=== PATIENT | female | born 1950 | race Caucasian/White ===

== ENCOUNTER 2017-04-27 09:05 | Day surgery (SDC) | payer MEDICARE, OTHER ==
[~2017-04-27] VITALS: Ht 157.6 cm; Wt 131.8 kg
[~2017-04-27 09:05] MED LIST: ACETAMINOPHEN W1 TA6 PO; ALDACTONE 25MG25 M1 PO; ALDACTONE 25MG25 MG PO; ALDACTONE50 MG PO; ALPHA-LIPOIC ACID PO; AMBIEN 10MG10 MG PO; AMBIEN 5MG TABLE5 MG PO; ASPIR-LOW81 MG PO; ASPIR-LOX325 MG PO; ASPIRIN 32325 MG/TA1 PO; ASPIRIN 32325 MG/TAB PO; ASPIRIN 81M81 MG/TA2 PO; ATIVAN; ATIVAN 0.50.5 MG/TAB PO; ATIVAN 1MG T1 MG/TAB PO; AZO-CRANBERRY450 MG PO; BENADRYL25 M2 PO; BIOFLAX1000 MG PO; BUMEX; BUMEX1 MG PO; CALCARB 600600 MG PO; CALCIUM CALTRATE PO; CARDI-OMEGA1000 MG PO; CEFACLOR500 MG PO; CEPHALEXIN500 M1 PO; CLEOCIN HCL300 MG PO; CLOTRIMAZOLE VG; COENZYME Q-10100 M1 PO; COQ(10)1010 MG PO; COQ10250 MG PO; CRANBERRY500 M3 PO; CREON 120000 U-1 ECC PO; CREON 60000 U-11 ECC PO; CREON1 CAP PO; CUTIVATE30 GM TOP; DIFLUCAN 100MG100 MG PO; DIFLUCAN150 MG PO; DIGOXIN0.125 MG PO; DIOVAN320 MG PO; DULERA1 ARO IH; DUO-KAPS1 CAP PO; FISH OIL 1000MG1 CAP PO; FISH OIL CONCEN1 SGL PO; FLONASE NASAL S16 GM NS; FLUOCINONIDE0.05% TP; GLUCOPHAGE500 MG/TAB PO; GLUMETZA500 MG PO; HCTZ 25MG TAB25 MG PO; HCTZ 25MG25 MG PO; INSHUMULINR SC; K-DUR 2020 MEQ PO; K-DUR20 MEQ PO; LANOXIN 0.120.125 MG PO; LASIX 40MG TABL40 MG PO; LASIX 80MG TABL80 MG PO; LASIX40 MG PO; LIPITOR 80MG80 MG PO; LISINOPRIL10 MG PO; LIVALO PO; LOPID600 MG PO; LOPRESSOR; LOPRESSOR 225 MG/TAB PO; LOPRESSOR 550 MG/TAB PO; LOTRIMIN1% TP; LUNESTA3 MG PO; LUTEIN PO; LUTEIN20 M1 PO; LUTEIN20 MG PO; MAALOX EXTRA S150 ML PO; MAGNESIUM200 MG PO; MAGNESIUM250 M1 PO; MASON NATURAL L20 MG PO; METFORMIN HCL1000 MG PO; METFORMIN500 MG PO; MIRALAX PA17 GM/Dose PO; MUCINEX 60600 MG/TA1 PO; MUCINEX 60600 MG/TAB PO; MUCINEX DM 30 M1 TER PO; MULTAQ400 MG PO; NASAL MOISTURIZ45 ML; NEXIUM 40MG40 MG PO; NEXIUM PO; NORCO 325 MG-51 TAB PO; NOVLOG SC; NOVOLIN 70/30 IN3 ML SC; NYAMYC100000 U/G TP; OMEGA 31000 MG PO; OS-CAL 500 + D1 TAB PO; PATANOL OPHTHALM5 ML OU; PENLAC TP; POTASSIUM CHLO10 ME2 PO; PRADAXA 150MG150 MG PO; PRIL40 PO; PRILOSEC 20MG20 MG PO; PROAIR HFA0.09 MG/AC IH; PROTONIX 40MG T40 MG PO; RISPERDAL 1M1 MG/TAB PO; SEE LIST; SEPTRA DS 8001 TAB PO; SINGULAIR 110 MG/TAB PO; SINGULAIR10 MG PO; SPECTAZOLE TOP; SYNTHROID0.112 MG/T PO; TEKTURNA150 MG; TEKTURNA300 MG PO; TOPROL XL 25MG25 MG PO; TOPROL XL 50MG50 MG PO; TOPROL XL25 MG PO; VENTOLIN0.09 MG IH; VITAMIN B COMPL PO; VITAMIN B PO; VYTORIN 10 MG-41 TAB PO; VYTORIN PO; ZAROXOLYN 2.52.5 MG PO; ZOCOR80 MG PO; ZYRTEC 10MG; ZYRTEC 10MG10 MG PO; ZYRTEC10 MG PO; [UNRECOGNIZED DRUG - OTHER]; [UNRECOGNIZED DRUG - OTHER]; [UNRECOGNIZED DRUG - OTHER] PO; [UNRECOGNIZED DRUG - OTHER] PO; [UNRECOGNIZED DRUG - SUPPLY]; glyburide PO; potassium
[2017-04-27 10:18] LABS: HEMATOCRIT 37.1 % (37.0-47.0); HEMOGLOBIN 12.2 g/dl (12.5-16.0); MEAN CELL VOLUME 92 fl (80.0-100.0); MEAN CORPUSCULAR HEMOGLOBIN 30 pg (27.0-31.0); MEAN CORPUSCULAR HGB CONC 33 g/dl (33.0-37.0); MEAN PLATELET VOLUME 10.7 fl (7.4-10.4); PLATELET COUNT 227 K/mm3 (130-400); RED BLOOD COUNT 4.04 M/mm3 (4.10-5.30); WHITE BLOOD COUNT 8.3 K/mm3 (4.8-10.8)
[2017-04-27 10:30] LABS: CALCIUM 9.4 mg/dL (8.4-10.2); CREATININE, serum 1.4 mg/dL (0.52-1.25); POTASSIUM 3.8 mmol/L (3.4-5.0)
[2017-04-27] MEDS ORDERED: ASPIRIN 32325 MG/TAB PO (10:47)
[2017-04-27] MEDS ORDERED: MUCINEX 60600 MG/TA1 PO (10:51)
[2017-04-27 10:55] LABS: PROTHROMBIN TIME 10.8 SECONDS (9.7-12.8)
[2017-04-27] MEDS ORDERED: EPIPEN 2-PAK1 MG/ML IM (11:05)
[2017-04-27 11:33] VITALS: BP 142/73; PULSE 69
[2017-04-27 12:43] VITALS: BP 129/64; PULSE 71
[2017-04-27 13:00] VITALS: BP 102/95; PULSE 70
[2017-04-27 13:15] VITALS: BP 123/57; PULSE 70
[2017-04-27 13:30] VITALS: BP 117/66; PULSE 71
[2017-04-27 13:45] VITALS: BP 118/49; PULSE 70
== END 2017-04-27 14:42 | disposition home or self-care (01) ==
LOC: COL.CAR 09:05
PROVIDERS: Internal Medicine Cardiovascular Disease
DX: I42.9 Cardiomyopathy, unspecified (principal); I10 Essential (primary) hypertension; I48.91 Unspecified atrial fibrillation; E11.9 Type 2 diabetes mellitus without complications; E78.5 Hyperlipidemia, unspecified; E03.9 Hypothyroidism, unspecified; E66.9 Obesity, unspecified; M19.90 Unspecified osteoarthritis, unspecified site; G47.33 Obstructive sleep apnea (adult) (pediatric); Z86.718 Personal history of other venous thrombosis and embolism
CPT/HCPCS: C1721; J2250; J3010; J3370; J7030; J7050

== ENCOUNTER 2018-01-17 20:00 | Emergency (ER) | payer MEDICARE, OTHER ==
[~2018-01-17] VITALS: Ht 157.5 cm; Wt 138.6 kg
[~2018-01-17 20:00] MED LIST changes: +EPIPEN 2-PAK1 MG/ML IM
[2018-01-17 20:06] VITALS: BP 133/70; TEMP 97.7
[2018-01-17] MEDS ORDERED: LOPROX CR 15GM TOP (21:22)
[2018-01-17] MEDS ORDERED: LOTRIMIN1% TP (21:23)
[2018-01-17] MEDS ORDERED: NEOSPORIN1 OIN OP (21:23)
[2018-01-17] MEDS ORDERED: ECONAZOLE NITRATE11 TOP (21:24)
[2018-01-17] MEDS ORDERED: ASPI325T6 PO (21:24)
[2018-01-17] MEDS ORDERED: EPA FISH OIL1 SGL PO (21:25)
[2018-01-17] MEDS ORDERED: CUTIVATE30 GM TOP (21:26)
[2018-01-17] MEDS ORDERED: MUCINEX 60600 MG/TA1 PO (21:27)
[2018-01-17] MEDS ORDERED: MYRBETR50MG PO (21:28)
[2018-01-17] MEDS ORDERED: PROBIOTIC ACID1 EAC3 PO (21:31)
[2018-01-17] MEDS ORDERED: PANCREAZE 437501 ECC PO (21:31)
[2018-01-17] MEDS ORDERED: ZINC OXIDE 28GM TP (21:33)
[2018-01-17 22:00] VITALS: PULSE 69
== END 2018-01-17 22:00 | disposition home or self-care (01) ==
LOC: COL.ER 20:00
DX: S00.93XA Contusion of unspecified part of head, initial encounter (principal); S80.02XA Contusion of left knee, initial encounter; S60.221A Contusion of right hand, initial encounter; I10 Essential (primary) hypertension; E11.9 Type 2 diabetes mellitus without complications; Z79.4 Long term (current) use of insulin; E78.00 Pure hypercholesterolemia, unspecified; W19.XXXA Unspecified fall, initial encounter; Y92.009 Unspecified place in unspecified non-institutional (private) residence as the place of occurrence of the external cause

== ENCOUNTER 2018-03-08 05:17 | Emergency (ER) | payer MEDICARE, OTHER ==
[~2018-03-08] VITALS: Ht 157.5 cm; Wt 140.9 kg
[~2018-03-08 05:17] MED LIST changes: +ASPI325T6 PO; +ECONAZOLE NITRATE11 TOP; +EPA FISH OIL1 SGL PO; +LOPROX CR 15GM TOP; +MYRBETR50MG PO; +NEOSPORIN1 OIN OP; +PANCREAZE 437501 ECC PO; +PROBIOTIC ACID1 EAC3 PO; +ZINC OXIDE 28GM TP
[2018-03-08 05:20] VITALS: BP 141/71; TEMP 97.7
[2018-03-08 05:45] LABS: COLLECTION METHOD CLEAN CATCH
[2018-03-08 05:52] LABS: MUCOUS Present /lpf; PH 6 (5-8); SQUAMOUS EPITHELIAL 0-2 /hpf; URINE APPEARANCE Clear; URINE BACTERIA Rare /hpf; URINE BILIRUBIN Negative (NEGATIVE); URINE BLOOD Negative (NEGATIVE); URINE COLOR Yellow; URINE GLUCOSE Negative (NEGATIVE); URINE KETONE Negative (NEGATIVE); URINE LEUKOCYTE ESTERASE Negative (NEGATIVE); URINE NITRATE Negative (NEGATIVE); URINE PROTEIN(semi-quant) Negative (NEGATIVE); URINE RBC 0-2 /hpf; URINE UROBILINOGEN Negative (NEGATIVE)
[2018-03-08 05:54] LABS: BASO # 0.1 (0.0-0.2); BASO % 0.7 % (0.0-2.0); EOS # 0.2 (0.0-0.7); EOS % 2.2 % (0-4.0); GRAN # 5.6 (1.4-6.5); GRAN % 65.6 % (42.2-75.2); HEMATOCRIT 37.4 % (37.0-47.0); HEMOGLOBIN 12.4 g/dl (12.5-16.0); LYMPH # 1.9 (1.2-3.4); LYMPH % 21.6 % (20.0-51.0); MEAN CELL VOLUME 93 fl (80.0-100.0); MEAN CORPUSCULAR HEMOGLOBIN 31 pg (27.0-31.0); MEAN CORPUSCULAR HGB CONC 33 g/dl (33.0-37.0); MEAN PLATELET VOLUME 9.9 fl (7.4-10.4); MONO # 0.8 (0.1-0.6); MONO % 9.7 % (1.7-9.3); PLATELET COUNT 250 K/mm3 (130-400); RED BLOOD COUNT 4.02 M/mm3 (4.10-5.30); REDCELL DISTRIBUTION WIDTH-CV 14.3 % (11.5-14.5)
[2018-03-08 06:07] LABS: ALBUMIN 4.1 gm/dL (3.5-5.0); BILIRUBIN,TOTAL 0.5 mg/dL (0.0-1.0); C-REACTIVE PROTEIN 0.8 mg/dL (0.0-0.9); CALCIUM 8.9 mg/dL (8.4-10.2); CREATININE, serum 1.48 mg/dL (0.52-1.25); POTASSIUM 4.4 mmol/L (3.4-5.0); TOTAL PROTEIN 7.8 gm/dL (6.4-8.2)
[2018-03-08] MEDS ORDERED: OMNICEF 300MG300 MG PO (07:35)
[2018-03-08 07:48] VITALS: PULSE 79
== END 2018-03-08 07:48 | disposition home or self-care (01) ==
LOC: COL.ER 05:17
PROVIDERS: Emergency Medicine
DX: N39.0 Urinary tract infection, site not specified (principal); E11.9 Type 2 diabetes mellitus without complications; I48.91 Unspecified atrial fibrillation; I50.9 Heart failure, unspecified; Z79.4 Long term (current) use of insulin; Z87.442 Personal history of urinary calculi

== ENCOUNTER 2018-04-10 12:36 | Day surgery (SDC) | payer MEDICARE, OTHER ==
[~2018-04-10] VITALS: Ht 157.5 cm; Wt 135.8 kg
[~2018-04-10 12:36] MED LIST changes: +OMNICEF 300MG300 MG PO
[2018-04-10 13:11] VITALS: BP 135/84; PULSE 71; TEMP 97.5
[2018-04-10] MEDS ORDERED: LIPITOR 80MG80 MG PO (13:17)
[2018-04-10] MEDS ORDERED: PRIL40 PO (13:17)
[2018-04-10] MEDS ORDERED: SPECTAZOLE 1% C15 GM TP ×2 (13:18→13:43)
[2018-04-10] MEDS ORDERED: XANAX 0.5MG0.5 MG PO (13:18)
[2018-04-10] MEDS ORDERED: SINGULAIR 110 MG/TAB PO (13:18)
[2018-04-10] MEDS ORDERED: SYNTHROID0.112 MG/T PO (13:19)
[2018-04-10] MEDS ORDERED: OS-CAL 500 + D1 TAB PO (13:19)
[2018-04-10] MEDS ORDERED: EPA FISH OIL1 SGL PO (13:20)
[2018-04-10] MEDS ORDERED: MUCINEX 60600 MG/TA1 PO (13:20)
[2018-04-10] MEDS ORDERED: GLUCOPHAGE500 MG/TAB PO (13:20)
[2018-04-10] MEDS ORDERED: MULTAQ400 MG PO (13:29)
[2018-04-10] MEDS ORDERED: HCTZ 25MG TAB25 MG PO (13:31)
[2018-04-10] MEDS ORDERED: PATANOL OPHTHALM5 ML OU (13:31)
[2018-04-10] MEDS ORDERED: LUNESTA3 MG PO (13:31)
[2018-04-10] MEDS ORDERED: MYRBETR50MG PO (13:34)
[2018-04-10] MEDS ORDERED: PANCREAZE 437501 ECC PO (13:34)
[2018-04-10] MEDS ORDERED: TEKTURNA300 MG PO (13:34)
[2018-04-10] MEDS ORDERED: LOPRESSOR 550 MG/TAB PO (13:35)
[2018-04-10] MEDS ORDERED: NOVOLOG PUMP SQ (13:37)
[2018-04-10] MEDS ORDERED: ZAROXOLYN5 MG PO (13:37)
[2018-04-10] MEDS ORDERED: ALDACTONE 25MG25 M1 PO (13:38)
[2018-04-10] MEDS ORDERED: LOPRESSOR 225 MG/TAB PO (13:39)
[2018-04-10] MEDS ORDERED: PROAIR HFA0.09 MG/AC IH (13:40)
[2018-04-10] MEDS ORDERED: LASIX 40MG TABL40 MG PO (13:41)
[2018-04-10] MEDS ORDERED: K-DUR20 MEQ PO (13:41)
[2018-04-10] MEDS ORDERED: ZYRTEC 10MG10 MG PO (13:41)
[2018-04-10] MEDS ORDERED: NEOSPORIN1 OIN OP (13:42)
[2018-04-10] MEDS ORDERED: ASPIRIN 32325 MG/TAB PO (13:42)
[2018-04-10] MEDS ORDERED: LOPROX CR 15GM TOP (13:42)
[2018-04-10] MEDS ORDERED: ZINC OXIDE 28GM TP (13:43)
[2018-04-10] MEDS ORDERED: EPIPEN 2-PAK1 MG/ML IM (13:43)
[2018-04-10] MEDS ORDERED: CUTIVATE15GMOINT TOP (13:44)
[2018-04-10] MEDS ORDERED: CRANBERRY500 M3 PO (13:44)
[2018-04-10] MEDS ORDERED: LOTRIMIN1% TP (13:44)
[2018-04-10] MEDS ORDERED: DULERA1 ARO IH (13:45)
[2018-04-10] MEDS ORDERED: BENADRYL25 M2 PO (13:45)
[2018-04-10] MEDS ORDERED: LUTEIN20 M1 PO (13:52)
[2018-04-10 15:00] VITALS: BP 111/76; PULSE 69; TEMP 97.7
[2018-04-10 15:15] VITALS: BP 132/63; PULSE 70
[2018-04-10 15:30] VITALS: BP 125/60; PULSE 70
[2018-04-10 15:45] VITALS: BP 117/63; PULSE 70
== END 2018-04-10 16:05 | disposition home or self-care (01) ==
LOC: SDCO 12:36
DX: D12.3 Benign neoplasm of transverse colon (principal); D12.8 Benign neoplasm of rectum; K63.5 Polyp of colon; K64.0 First degree hemorrhoids; K57.30 Diverticulosis of large intestine without perforation or abscess without bleeding; E11.9 Type 2 diabetes mellitus without complications; I10 Essential (primary) hypertension; J45.909 Unspecified asthma, uncomplicated; E03.9 Hypothyroidism, unspecified; K21.9 Gastro-esophageal reflux disease without esophagitis; I25.10 Atherosclerotic heart disease of native coronary artery without angina pectoris; I11.0 Hypertensive heart disease with heart failure; I50.9 Heart failure, unspecified; R19.7 Diarrhea, unspecified; I42.8 Other cardiomyopathies; G47.33 Obstructive sleep apnea (adult) (pediatric); Z79.82 Long term (current) use of aspirin; Z95.0 Presence of cardiac pacemaker; Z96.41 Presence of insulin pump (external) (internal); Z88.0 Allergy status to penicillin; Z88.2 Allergy status to sulfonamides; Z88.1 Allergy status to other antibiotic agents; Z88.8 Allergy status to other drugs, medicaments and biological substances; Z86.010 Personal history of colon polyps; Z85.828 Personal history of other malignant neoplasm of skin
CPT/HCPCS: J2704; J7030

== ENCOUNTER 2018-09-17 12:36 | Emergency (ER) | payer MEDICARE, OTHER ==
[~2018-09-17] VITALS: Ht 157.5 cm; Wt 139.9 kg
[~2018-09-17 12:36] MED LIST changes: +CUTIVATE15GMOINT TOP; +NOVOLOG PUMP SQ; +SPECTAZOLE 1% C15 GM TP; +XANAX 0.5MG0.5 MG PO; +ZAROXOLYN5 MG PO
[2018-09-17 12:41] VITALS: BP 134/61; TEMP 98.8
[2018-09-17] MEDS ORDERED: FLEXERIL 1010 MG/TAB PO (14:50)
[2018-09-17] MEDS ORDERED: CREON 60000 U-11 ECC PO (15:06)
[2018-09-17] MEDS ORDERED: ALDACTONE 25MG25 M1 PO (15:08)
[2018-09-17 17:30] VITALS: PULSE 76
== END 2018-09-17 17:30 | disposition home or self-care (01) ==
LOC: COL.ER 12:36
DX: S39.012A Strain of muscle, fascia and tendon of lower back, initial encounter (principal); I10 Essential (primary) hypertension; E11.9 Type 2 diabetes mellitus without complications; I50.9 Heart failure, unspecified; Z79.84 Long term (current) use of oral hypoglycemic drugs; W01.0XXA Fall on same level from slipping, tripping and stumbling without subsequent striking against object, initial encounter; Y92.009 Unspecified place in unspecified non-institutional (private) residence as the place of occurrence of the external cause

== ENCOUNTER → 2018-11-21 | Outpatient (CLI) | payer MEDICARE, OTHER ==
[~2018-11-21] MED LIST changes: +FLEXERIL 1010 MG/TAB PO
== END ==
LOC: COL.RAD 10:34
DX: M25.78 Osteophyte, vertebrae (principal); R10.10 Upper abdominal pain, unspecified; Z95.1 Presence of aortocoronary bypass graft

== ENCOUNTER → 2019-02-11 | Outpatient (CLI) | payer MEDICARE, OTHER | LOC: COL.RAD 14:05 | DX: M75.121 Complete rotator cuff tear or rupture of right shoulder, not specified as traumatic (principal); M19.011 Primary osteoarthritis, right shoulder; M75.81 Other shoulder lesions, right shoulder | CPT/HCPCS: Q9967 ==

== ENCOUNTER → 2019-02-15 | Outpatient (CLI) | payer MEDICARE, OTHER | LOC: COL.RAD 10:09 | DX: M75.101 Unspecified rotator cuff tear or rupture of right shoulder, not specified as traumatic (principal) | CPT/HCPCS: J3301; Q9967 ==

== ENCOUNTER 2019-03-04 14:48 | Outpatient (RCR) | payer MEDICARE, OTHER | END 2019-03-14 13:00 | disposition home or self-care (01) | LOC: WSC 14:48 | DX: M17.0 Bilateral primary osteoarthritis of knee (principal); M19.011 Primary osteoarthritis, right shoulder; M19.012 Primary osteoarthritis, left shoulder ==

== ENCOUNTER 2019-03-31 17:22 | Emergency (ER) | payer MEDICARE, OTHER ==
[~2019-03-31] VITALS: Ht 157.5 cm; Wt 130.9 kg
[2019-03-31 17:26] VITALS: BP 124/59; TEMP 98.5
[2019-03-31 18:48] VITALS: PULSE 71
== END 2019-03-31 18:44 | disposition home or self-care (01) ==
LOC: COL.ER 17:22
DX: S00.83XA Contusion of other part of head, initial encounter (principal); S40.011A Contusion of right shoulder, initial encounter; S80.01XA Contusion of right knee, initial encounter; W18.39XA Other fall on same level, initial encounter

== ENCOUNTER 2019-06-06 09:08 | Emergency (ER) | payer MEDICARE, OTHER ==
[~2019-06-06] VITALS: Ht 157.5 cm; Wt 134.1 kg
[2019-06-06 09:22] VITALS: TEMP 97.7
[2019-06-06 10:26] LABS: BASO # 0.1 (0.0-0.2); BASO % 0.9 % (0.0-2.0); EOS # 0.4 (0.0-0.7); EOS % 5.5 % (0-4.0); GRAN # 4.1 (1.4-6.5); GRAN % 60.5 % (42.2-75.2); LYMPH # 1.5 (1.2-3.4); LYMPH % 21.4 % (20.0-51.0); MEAN CELL VOLUME 92 fl (80.0-100.0); MEAN CORPUSCULAR HEMOGLOBIN 30 pg (27.0-31.0); MEAN CORPUSCULAR HGB CONC 32 g/dl (33.0-37.0); MEAN PLATELET VOLUME 10.2 fl (7.4-10.4); MONO # 0.8 (0.1-0.6); MONO % 11.1 % (1.7-9.3); PLATELET COUNT 270 K/mm3 (130-400); RED BLOOD COUNT 3.72 M/mm3 (4.10-5.30); REDCELL DISTRIBUTION WIDTH-CV 14.9 % (11.5-14.5)
[2019-06-06 10:28] LABS: HEMATOCRIT 34.3 % (37.0-47.0)
[2019-06-06 10:31] LABS: PROTHROMBIN TIME 11.1 SECONDS (9.7-12.8)
[2019-06-06 10:38] LABS: ALBUMIN 4.2 gm/dL (3.5-5.0); BILIRUBIN,TOTAL 0.4 mg/dL (0.0-1.0); CALCIUM 9.1 mg/dL (8.4-10.2); CREATININE, serum 1.72 (0.52-1.25); TOTAL PROTEIN 7.4 gm/dL (6.4-8.2)
[2019-06-06 10:51] LABS: TROPONIN-I 0.025 ng/mL (0.000-0.035)
[2019-06-06 12:30] VITALS: BP 127/57; PULSE 74
== END 2019-06-06 12:30 | disposition home or self-care (01) ==
LOC: COL.ER 09:08
PROVIDERS: Emergency Medicine
DX: I50.9 Heart failure, unspecified (principal); E11.9 Type 2 diabetes mellitus without complications; I10 Essential (primary) hypertension; Z79.84 Long term (current) use of oral hypoglycemic drugs
CPT/HCPCS: J1940

== ENCOUNTER 2019-06-26 05:49 | Emergency (ER) | payer MEDICARE, OTHER ==
[~2019-06-26] VITALS: Ht 157.5 cm; Wt 130.5 kg
[2019-06-26 06:00] VITALS: BP 116/58; TEMP 97.5
[2019-06-26 06:46] LABS: COLLECTION METHOD CLEAN CATCH
[2019-06-26 07:10] LABS: MUCOUS Present /lpf; PH 6 (5-8); URINE APPEARANCE Cloudy; URINE BACTERIA None Seen /hpf; URINE BILIRUBIN Negative (NEGATIVE); URINE BLOOD 1+ (NEGATIVE); URINE COLOR Yellow; URINE GLUCOSE Negative (NEGATIVE); URINE KETONE Negative (NEGATIVE); URINE LEUKOCYTE ESTERASE 3+ (NEGATIVE); URINE NITRATE Negative (NEGATIVE); URINE PROTEIN(semi-quant) 1+ (NEGATIVE); URINE RBC 20-50 /hpf; URINE UROBILINOGEN Negative (NEGATIVE)
[2019-06-26] MEDS ORDERED: MACROBID 1100 MG/CAP PO (07:24)
[2019-06-26] MEDS ORDERED: TYLENOL W/COD1 UDTAB PO (08:46)
[2019-06-26] MEDS ORDERED: DIAMOX125 MG (08:48)
[2019-06-26] MEDS ORDERED: BENADRYL25 M2 PO (08:50)
[2019-06-26] MEDS ORDERED: MULTAQ400 MG PO (08:51)
[2019-06-26] MEDS ORDERED: VAGIFEM10 MCG VG (08:52)
[2019-06-26] MEDS ORDERED: EPA FISH OIL1000 MG PO (08:53)
[2019-06-26] MEDS ORDERED: MUCINEX 60600 MG/TA1 PO (08:54)
[2019-06-26] MEDS ORDERED: NOVOLOG 100U100 U/M1 SQ (08:55)
[2019-06-26] MEDS ORDERED: NIZORAL CREAM15 GM TP (08:56)
[2019-06-26] MEDS ORDERED: MOBIC15 MG PO (08:57)
[2019-06-26 09:13] VITALS: PULSE 71
== END 2019-06-26 09:14 | disposition home or self-care (01) ==
LOC: COL.ER 05:49
PROVIDERS: Emergency Medicine
DX: N39.0 Urinary tract infection, site not specified (principal); K21.9 Gastro-esophageal reflux disease without esophagitis; E03.9 Hypothyroidism, unspecified; J45.909 Unspecified asthma, uncomplicated; I11.0 Hypertensive heart disease with heart failure; I50.9 Heart failure, unspecified; E11.9 Type 2 diabetes mellitus without complications; Z79.82 Long term (current) use of aspirin; Z79.4 Long term (current) use of insulin
CPT/HCPCS: J0696

== ENCOUNTER 2019-10-18 20:11 | Inpatient (IN) | payer MEDICARE, OTHER ==
[~2019-10-18] VITALS: Ht 157.5 cm; Wt 121.7 kg
[~2019-10-18 20:11] MED LIST changes: +DIAMOX125 MG; +EPA FISH OIL1000 MG PO; +MACROBID 1100 MG/CAP PO; +MOBIC15 MG PO; +NIZORAL CREAM15 GM TP; +NOVOLOG 100U100 U/M1 SQ; +TYLENOL W/COD1 UDTAB PO; +VAGIFEM10 MCG VG
[2019-10-18 20:42] LABS: BASO % 0.3 % (0.0-2.0); GRAN # 9.9 (1.4-6.5); GRAN % 85.5 % (42.2-75.2); HEMOGLOBIN 10.9 g/dl (12.5-16.0); LYMPH # 0.5 (1.2-3.4); LYMPH % 4.4 % (20.0-51.0); MEAN CELL VOLUME 87 fl (80.0-100.0); MEAN CORPUSCULAR HEMOGLOBIN 29 pg (27.0-31.0); MEAN CORPUSCULAR HGB CONC 33 g/dl (33.0-37.0); MEAN PLATELET VOLUME 10.4 fl (7.4-10.4); MONO # 1.1 (0.1-0.6); MONO % 9.2 % (1.7-9.3); PLATELET COUNT 185 K/mm3 (130-400); RED BLOOD COUNT 3.74 M/mm3 (4.10-5.30); REDCELL DISTRIBUTION WIDTH-CV 14.6 % (11.5-14.5)
[2019-10-18 20:44] LABS: HEMATOCRIT 32.7 % (37.0-47.0)
[2019-10-18 20:53] LABS: ALBUMIN 3.6 gm/dL (3.5-5.0); BILIRUBIN,TOTAL 0.6 mg/dL (0.0-1.0); CALCIUM 8.5 mg/dL (8.4-10.2); CREATININE, serum 1.95 (0.52-1.25); TOTAL PROTEIN 7.2 gm/dL (6.4-8.2)
[2019-10-18 21:08] LABS: TROPONIN-I 2.5 ng/mL (0.000-0.035)
[2019-10-18 21:31] LABS: MUCOUS Present /lpf; PH 5 (5-8); URINE APPEARANCE Cloudy; URINE BACTERIA Many /hpf; URINE BILIRUBIN Negative (NEGATIVE); URINE BLOOD 2+ (NEGATIVE); URINE COLOR Yellow; URINE GLUCOSE 2+ (NEGATIVE); URINE KETONE Negative (NEGATIVE); URINE LEUKOCYTE ESTERASE 3+ (NEGATIVE); URINE NITRATE Negative (NEGATIVE); URINE PROTEIN(semi-quant) 1+ (NEGATIVE); URINE UROBILINOGEN Negative (NEGATIVE)
[2019-10-18 21:31] LABS: C-REACTIVE PROTEIN 33.6 mg/dL (0.0-0.9)
[2019-10-18 21:45] LABS: ARTERIAL BLD GAS O2 SATURATION 91.6 % (92-100); ARTERIAL BLD GAS TCO2 CT 32.8; ARTERIAL BLOOD GAS BASE EXCESS 7.7 (-2-2); ARTERIAL BLOOD GAS HCO3 31.6 meq/L (22-26); ARTERIAL BLOOD GAS PCO2 41.3 mmHg (35-45); ARTERIAL BLOOD GAS PO2 56.5 mmHg (80-100)
[2019-10-18] MEDS ORDERED: SYNTHROID 0.10.15 MG PO (22:38)
[2019-10-18] MEDS ORDERED: MIRALAX PA17 GM/Dose PO (22:39)
--- NOTE | 2019-10-18 23:00 | NUR ---
Pt calls for her HS meds, reminded her she had them at 10pm. Asking for another jello, as she is still on clear liquid diet.
[2019-10-19] VITALS (491 sets, daily range): BP systolic 97–141; BP diastolic 45–84; PULSE 77–98; TEMP 97.6–101; O2SAT 79–100
--- NOTE | 2019-10-19 00:51 | NUR ---
Received report from DENNIS Montelongo.
--- NOTE | 2019-10-19 01:07 | NUR ---
Patient arrives to ICU room 6 via ED stretcher. Patient able to pivot into bed with two person assist. Ilene notified of patient's arrival and is at the bedside. Patient incontinent of urine during transfer. She is short of breath upon arrival, but tolerates transfer well. BP is 94/49 upon arrival, other vitals within normal limits. Patient's bottom and pubic area are slightly reddened, but intact and blanchable. Some 1+ edema noted to the bilateral lower extremities, no other skin issues noted. Patient states she is in chronic pain due to arthritis, stating her baseline is a 10/10. Patient is alert and oriented x 4, however, is a poor health historian. When completing Admission B, patient answers "yes," to all health conditions when asked. She states she normally sleeps in a more upright position, so patient was eventually transferred to a recliner. She is currently resting quietly and watching televison. RT has been notified of order for CPAP. Will contact in AM and request he bring home CPAP as well as her mouthguard and glasses. Will continue to monitor.
[2019-10-19] MEDS ORDERED: TOPROL XL 25MG25 MG PO (03:09)
[2019-10-19 06:11] LABS: ARTERIAL BLD GAS O2 SATURATION 90.6 % (92-100); ARTERIAL BLD GAS TCO2 CT 26.4; ARTERIAL BLOOD GAS BASE EXCESS 2.4 (-2-2); ARTERIAL BLOOD GAS HCO3 25.4 meq/L (22-26); ARTERIAL BLOOD GAS pH 7.49 (7.35-7.45)
[2019-10-19 07:35] LABS: HEMOGLOBIN 11.3 g/dl (12.5-16.0); MEAN CELL VOLUME 89 fl (80.0-100.0); MEAN CORPUSCULAR HEMOGLOBIN 29 pg (27.0-31.0); MEAN CORPUSCULAR HGB CONC 33 g/dl (33.0-37.0); MEAN PLATELET VOLUME 10.8 fl (7.4-10.4); PLATELET COUNT 189 K/mm3 (130-400); RED BLOOD COUNT 3.86 M/mm3 (4.10-5.30); REDCELL DISTRIBUTION WIDTH-CV 14.8 % (11.5-14.5)
[2019-10-19 07:40] LABS: HEMATOCRIT 34.4 % (37.0-47.0)
[2019-10-19 07:42] LABS: ALBUMIN 3.7 gm/dL (3.5-5.0); BILIRUBIN,TOTAL 0.9 mg/dL (0.0-1.0); CALCIUM 8.6 mg/dL (8.4-10.2); CREATININE, serum 1.85 (0.52-1.25); POTASSIUM 3.8 mmol/L (3.4-5.0); TOTAL PROTEIN 7.3 gm/dL (6.4-8.2)
--- NOTE | 2019-10-19 19:22 | NUR ---
Report called to Medical. Patient will transfer to room 316.
--- NOTE | 2019-10-19 20:00 | NUR ---
Pt arrived per w/c from ICU, transferred from w/c to bed with 2 assist and moderate help. Reports using a walker at home. Assisted pt with her legs to bed. Has fang catheter to BSD with yellow urine. Has SL to right hand without redness or swelling. Respirations labored with activity, lungs are clear. Pt is forgetful, could not tell me the date, did know where she was.
--- NOTE | 2019-10-19 21:55 | NUR ---
Medicated with HS meds including Xanax for sleep. Pt has CPAP at bedside.
--- NOTE | 2019-10-20 | NUR ---
Pt again asking for her HS meds. Reminded again she had them at 10pm. Encouraged to sleep.
--- NOTE | 2019-10-20 03:34 | NUR ---
Assisted to bathroom with gait belt and walker with 2 supervising, pt ambulates with slow steady gait. Has mod soft BM. Back to bed. Denies needs at this time.
[2019-10-20 04:26] VITALS: BP 138/59; PULSE 92; TEMP 100.3
--- NOTE | 2019-10-20 06:30 | NUR ---
Resting in bed with CPAP on.
[2019-10-20 07:12] LABS: BASO % 0.2 % (0.0-2.0); EOS % 0.2 % (0-4.0); GRAN # 8.2 (1.4-6.5); GRAN % 76.8 % (42.2-75.2); HEMOGLOBIN 10.4 g/dl (12.5-16.0); LYMPH # 1.1 (1.2-3.4); MEAN CELL VOLUME 89 fl (80.0-100.0); MEAN CORPUSCULAR HEMOGLOBIN 29 pg (27.0-31.0); MEAN CORPUSCULAR HGB CONC 33 g/dl (33.0-37.0); MEAN PLATELET VOLUME 10.5 fl (7.4-10.4); MONO # 1.3 (0.1-0.6); MONO % 12.1 % (1.7-9.3); PLATELET COUNT 186 K/mm3 (130-400); RED BLOOD COUNT 3.55 M/mm3 (4.10-5.30); REDCELL DISTRIBUTION WIDTH-CV 14.8 % (11.5-14.5)
[2019-10-20 07:15] LABS: HEMATOCRIT 31.5 % (37.0-47.0)
[2019-10-20 07:21] LABS: ALBUMIN 3.3 gm/dL (3.5-5.0); BILIRUBIN,TOTAL 0.7 mg/dL (0.0-1.0); CALCIUM 8.2 mg/dL (8.4-10.2); CREATININE, serum 1.2 (0.52-1.25); POTASSIUM 3.7 mmol/L (3.4-5.0); TOTAL PROTEIN 6.7 gm/dL (6.4-8.2)
[2019-10-20 07:22] LABS: INR 1.1 (0.8-3.0); PROTHROMBIN TIME 13.3 SECONDS (9.7-12.8)
[2019-10-20 08:12] VITALS: BP 127/49; PULSE 101; TEMP 100.1
[2019-10-20 08:56] LABS: COLLECTION METHOD CATHETER
--- NOTE | 2019-10-20 11:03 | NUR ---
Patient alert, confused. Answers some questions appropriately, but continually refers back to previous question before answering correctly. Abdomen soft, non tender, non distended. Bowel sounds active x4 quads. +Flatus. Felder catheter in place and draining clear yellow urine. No c/o at this time.
[2019-10-20 11:37] VITALS: BP 121/55; PULSE 101; TEMP 99.5
[2019-10-20 15:59] VITALS: BP 127/54; PULSE 83; TEMP 97.5
[2019-10-20 19:35] VITALS: BP 151/56; PULSE 97; TEMP 98.7
[2019-10-21 00:05] VITALS: BP 150/72; PULSE 96; TEMP 99.2
--- NOTE | 2019-10-21 02:17 | NUR ---
PATIENT IS IN BED MESSING AROUND JUST NOT SLEEPING BUT DENYING ANY NEEDS
[2019-10-21 03:56] VITALS: BP 115/54; PULSE 90; TEMP 98.2
--- NOTE | 2019-10-21 04:22 | NUR ---
PATIENT IS RESTING IN BED
--- NOTE | 2019-10-21 04:57 | NUR ---
patient finally settled down and went to sleep with the cpap on. patient has denied any other needs throughout the night. before she went to sleep she was cross ways in the bed while trying to brush her teeth, aide and I put her in bed with x3 side rails up to keep her in place. patient blood sugar at 0000 was 349 and A [facility] was notified and Q4 dosing insulin was changed on her eMAR. per 0400 accu check patient was 273 and dosed accordingly. patient has been having good output with the fang in place. no other complaints at this time. will report off to day shift upon their arrival
[2019-10-21 07:12] LABS: HEMOGLOBIN 10.7 g/dl (12.5-16.0); MEAN CELL VOLUME 88 fl (80.0-100.0); MEAN CORPUSCULAR HEMOGLOBIN 29 pg (27.0-31.0); MEAN CORPUSCULAR HGB CONC 33 g/dl (33.0-37.0); MEAN PLATELET VOLUME 10.7 fl (7.4-10.4); PLATELET COUNT 212 K/mm3 (130-400); RED BLOOD COUNT 3.71 M/mm3 (4.10-5.30); REDCELL DISTRIBUTION WIDTH-CV 14.8 % (11.5-14.5)
[2019-10-21 07:18] LABS: HEMATOCRIT 32.7 % (37.0-47.0)
[2019-10-21 07:19] LABS: INR 1.1 (0.8-3.0); PROTHROMBIN TIME 12.3 SECONDS (9.7-12.8)
[2019-10-21 07:39] LABS: ALBUMIN 3.3 gm/dL (3.5-5.0); BILIRUBIN,TOTAL 0.6 mg/dL (0.0-1.0); CALCIUM 8.5 mg/dL (8.4-10.2); CREATININE, serum 1.13 (0.52-1.25); POTASSIUM 3.5 mmol/L (3.4-5.0)
[2019-10-21 08:10] VITALS: BP 121/63; PULSE 90; TEMP 97.9
--- NOTE | 2019-10-21 10:16 | NUR ---
DYAN met with the patient to complete initial intake. The patient lives in [place] with her , Prieto. The patient has a walker and a CPAP and is independent with ADLs. The patient's PCP is Dr. Hickey and receives medications from [place] [facility]. The patient does not have advanced directives. The patient plans to return home at discharge with Prieto providing transportation. There are no additional needs at this time.
--- NOTE | 2019-10-21 10:43 | NUR ---
PT/OT ordered.
[2019-10-21 11:05] LABS: BAND 5 % (0-10); LYMPHOCYTE 20 % (20.0-51.0); NEUTROPHILS 64 % (42.0-75.2)
[2019-10-21 11:15] LABS: PLATELET ESTIMATE NORMAL (NORMAL)
[2019-10-21 11:49] VITALS: BP 105/38; PULSE 90; TEMP 98.8
--- NOTE | 2019-10-21 11:51 | NUR ---
Assessment complete. Pt laying in bed fixated on moving around her gown. I had to put her gown and blankets back on 3 times. She is alert and states that she feels great and is ready to go home but she is not oriented to place or time. She thought it was 1950. She denies pain and discomfort at this time. I repositioned her up in the bed and set her up for breakfast but she continues to state she is going to eat it later. Fall precautions are in place. Call light is in reach.
--- NOTE | 2019-10-21 13:41 | NUR ---
Post acute rehab is being recommended for the patient. DYAN contacted the patient's , Prieto to discuss Medicare.[facility]'s list of post acute rehab facilities in [place]. Prieto was in agreeance with the patient needing rehab and the first choice is [facility] and second choice is [facility]. DYAN met with the patient and she was in agreeance. Referrals sent. Awaiting responses.
--- NOTE | 2019-10-21 13:50 | NUR ---
DYAN received a phone call from the patient's daughter, Ulisses Sweet ([phone]) she lives in [place]. She was in agreeance with post acute rehab for the patient. Will continue to monitor.
--- NOTE | 2019-10-21 15:38 | NUR ---
Patient continues to be confused throughout the day. She can hold a normal conversation without noticable deficits but it is very difficult to get her to perform tasks. She always agrees to do a certain task or movement but fidgets so much with everything she touches that it is impossible to get anything done. She wanted her robe off (which she insisted on having this morning) so I put her in clean yellow gown as requested. Immediately after putting it on she insisted on having it off in order to be able to move and did not want it back on. She is lying in bed naked with just the top sheet and is content. I have tried to get her to eat all day, she says she is going to time after time and then doesnt. And when I ask her why she states "I havent been able to get to it" or "I fell asleep". I will continue to monitor and to try to get her to eat.
[2019-10-21 16:25] VITALS: BP 151/75; PULSE 95; TEMP 98.4
--- NOTE | 2019-10-21 16:49 | NUR ---
Litzy from [facility] reports they are good to follow. They are requesting a COVID-19 swab and they want to make sure the patient will not require intermittent BiPAP usage. SW informed PA of the COVID-19 information. Will continue to monitor.
--- NOTE | 2019-10-21 18:05 | NUR ---
Pt has had a good day. Confusion continues. i will be calling her to see if he can bring her her insulin pump to her tonight here so that it can be set up for her tomorrow per Sara TAYLOR request. No pain or discomfort all day other than her chronic arthritis pain. I encouraged food all day but patient did not eat very much. No other needs. call light in reach .
--- NOTE | 2019-10-21 20:30 | NUR ---
Initial shift assessment done- alert/oriented x4- very fidgety-does not stop moving her blanket around the bed, taking on and off her gown- constantly , answers all the questions regarding time/year/place correct--does state that her diabetes is what is causing all her issues,,Tele on, Felder to DD with cloudy urine.
[2019-10-21 21:35] VITALS: BP 121/54; PULSE 104; TEMP 98.3
[2019-10-22 00:45] VITALS: BP 123/102; PULSE 100; TEMP 98.5
[2019-10-22 04:34] VITALS: BP 124/60; PULSE 92; TEMP 98.3
--- NOTE | 2019-10-22 06:30 | NUR ---
Did not sleep much last night- remains very fidgety- was given xanax and flexeril once during the night- did sleep for about an hour after those were given- blood sugars remain [id number] scale given
[2019-10-22 06:42] LABS: HEMOGLOBIN 11.3 g/dl (12.5-16.0); MEAN CELL VOLUME 88 fl (80.0-100.0); MEAN CORPUSCULAR HEMOGLOBIN 29 pg (27.0-31.0); MEAN CORPUSCULAR HGB CONC 33 g/dl (33.0-37.0); MEAN PLATELET VOLUME 10.7 fl (7.4-10.4); PLATELET COUNT 259 K/mm3 (130-400); RED BLOOD COUNT 3.95 M/mm3 (4.10-5.30); REDCELL DISTRIBUTION WIDTH-CV 14.7 % (11.5-14.5)
[2019-10-22 06:44] LABS: HEMATOCRIT 34.6 % (37.0-47.0)
[2019-10-22 06:52] LABS: PROTHROMBIN TIME 12.2 SECONDS (9.7-12.8)
[2019-10-22 07:01] LABS: ALBUMIN 3.4 gm/dL (3.5-5.0); BILIRUBIN,TOTAL 0.4 mg/dL (0.0-1.0); CALCIUM 8.6 mg/dL (8.4-10.2); CREATININE, serum 1.36 (0.52-1.25); POTASSIUM 3.9 mmol/L (3.4-5.0); TOTAL PROTEIN 7.2 gm/dL (6.4-8.2)
[2019-10-22 07:31] VITALS: BP 128/57; PULSE 100; TEMP 98.5
[2019-10-22 07:58] LABS: BAND 8 % (0-10); EOSINOPHIL 4 % (0-4); LYMPHOCYTE 24 % (20.0-51.0); METAMYELOCYTE 2 % (0-0); NEUTROPHILS 58 % (42.0-75.2); PLATELET ESTIMATE NORMAL (NORMAL)
[2019-10-22 11:14] VITALS: BP 111/51; PULSE 91; TEMP 98.6
--- NOTE | 2019-10-22 12:51 | NUR ---
DYAN faxed updates to Litzy at [facility]. The patient's daughter, Ulisses contacted DYAN. DYAN and Ulisses discussed possibly sending out other referrals. Ulisses to speak with the patient's , Prieto. Will continue to follow.
[2019-10-22 16:01] VITALS: BP 121/56; PULSE 88; TEMP 98.5
--- NOTE | 2019-10-22 16:34 | NUR ---
Manager Credit Collections spoke with Litzy at [facility] and advised that patient's COVID 19 test is still pending. SW to continue to follow.
--- NOTE | 2019-10-22 19:12 | NUR ---
Pt has had uneventful day, pt alert, partially oriented. Pt receiving breathing tx this morning. Pt denied any pain, dizziness, SOB, N/V/D. Pt has RH INT IV that flushes w/o complications. Pt received sliding scale per MAR, BS checks in 300s today. Pt has been on 1-2L NC off and on throughout day and wore cpap during nap. Pt has been cooperative with cares but occasionally found fidgeting, laying half way off bed, tele off, phone cord wrapped around call light, requiring time to gather thoughts. Pt has fang draining yellow urine, no complications. No other concerns expressed today.
--- NOTE | 2019-10-22 20:10 | NUR ---
Patient assessed at this time. Alert and oriented with intermittent confusion. Keeps taking off gown/tele/etc. Denies phaving pain and discomfort. Peripheral IV to right hand. Denies SOB and dyspnea. LC CTA upper lobes, diminished lower lobes. Respirations even and unlabored. HRR. Telemetry in place. Capillary refill less than 3 seconds. Non-tenting skin turgor. BSAx4. Abdomen soft and non-tender. 2+ edema BLE. Indwelling fang catheter patent and draining clear yellow urine via dependent drainage. Patient anxious, and given PRN Xanax per orders. High fall risk precautions in place. Voices no further questions, needs, or concerns at this time. Call light is within reach.
[2019-10-22 21:14] VITALS: BP 124/50; PULSE 92; TEMP 98.5
--- NOTE | 2019-10-22 21:52 | NUR ---
PATIENT REFUSED TREATMENT
[2019-10-23] VITALS (7 sets, daily range): BP systolic 119–153; BP diastolic 54–75; PULSE 86–105; TEMP 97.8–98.7
--- NOTE | 2019-10-23 05:28 | NUR ---
Patient has denied having pain and discomfort this shift. Voices no questions, needs, or concerns at this time. Resting in bed with eyes closed.
[2019-10-23 06:20] LABS: HEMOGLOBIN 11.6 g/dl (12.5-16.0); MEAN CELL VOLUME 88 fl (80.0-100.0); MEAN CORPUSCULAR HEMOGLOBIN 30 pg (27.0-31.0); MEAN CORPUSCULAR HGB CONC 34 g/dl (33.0-37.0); PLATELET COUNT 285 K/mm3 (130-400); RED BLOOD COUNT 3.91 M/mm3 (4.10-5.30)
[2019-10-23 06:33] LABS: HEMATOCRIT 34.4 % (37.0-47.0)
[2019-10-23 07:25] LABS: BAND 8 % (0-10); EOSINOPHIL 2 % (0-4); LYMPHOCYTE 19 % (20.0-51.0); METAMYELOCYTE 1 % (0-0); NEUTROPHILS 64 % (42.0-75.2); PLATELET ESTIMATE NORMAL (NORMAL)
[2019-10-23 07:29] LABS: CALCIUM 8.7 mg/dL (8.4-10.2); CREATININE, serum 1.35 (0.52-1.25); POTASSIUM 3.7 mmol/L (3.4-5.0)
--- NOTE | 2019-10-23 09:32 | NUR ---
The patient's daughter contacted and was open to sending referrals to [facility] and [facility]. Referrals sent. Awaiting responses.
--- NOTE | 2019-10-23 11:31 | NUR ---
Multiple Resaw Operator attended clinical rounds with the team and patient medically cleared for discharge today. SW contacted Litzy at [facility] and faxed updates. Per CLIFTON Odom patient's COVID test to come back today and patient has not been on bi-pap, just cpap. SW provided this update to Litzy at [facility]. SW contacted patient's daughter and to provide update. SW to continue to follow.
--- NOTE | 2019-10-23 16:04 | NUR ---
DYAN collaborated with CLIFTON Odom who advised patient's COVID test likely will not come back until today at 1630. DYAN spoke with Litzy at [facility] who advised that would be too late to discharge but they would accept patient tomorrow. Transport time set for 1100. DYAN provided transport time to patient and CLIFTON Odom. Both in agreement. DYAN contacted patient's , Prieto to provide update. DYAN left a message for patient's daughter. Plan is for discharge tomorrow.
--- NOTE | 2019-10-23 19:30 | NUR ---
Patient assessed at this time. Alert and oriented x 4, and able to make needs known. Denies having pain and discomfort at this time. Peripheral IV to right hand. Denies SOB and dyspnea. LS CTA in upper lobes, diminished in lower. Respirations even and unlabored. HRR. Telemetry in place. Capillary refill less than 3 seconds. Non-tenting skin turgor. BSAx4. Abdomen soft and non-tender. Indwelling fang catheter patent, with clear yellow urine via dependent drainage. 2+ edema BLE. Voices no questions, needs, or concerns at this time. Call light is within reach.
[2019-10-24 04:18] VITALS: BP 128/55; PULSE 86; TEMP 97.7
--- NOTE | 2019-10-24 05:36 | NUR ---
Patient has been resting in bed. Reported that she slept well last night, just anxious about going to nursing facility today. States that she's been trying to get ahold of her to have him bring her some clothes, but has not been able to. Stated she will try again later this morning. Denies having pain and discomfort. Voices no questions, needs, or concerns at this time. Resting in bed with call light within reach.
--- NOTE | 2019-10-24 08:36 | NUR ---
Paper Cap Machine Operator faxed updates to Litzy at [facility].
--- NOTE | 2019-10-24 08:37 | NUR ---
Assessment complete. Patient sitting up on the edge of the bed eating breakfast. A&Ox4. Denies pain and discomfort. IV CDI. Felder dependent drainage, tea colored and clear. Bed alarm on. Call light within reach
[2019-10-24 09:11] VITALS: BP 134/55; PULSE 95; TEMP 98.3
[2019-10-24] MEDS ORDERED: K-TAB20 PO (09:32)
[2019-10-24] MEDS ORDERED: XANAX 0.5MG0.5 MG PO (09:35)
--- NOTE | 2019-10-24 10:29 | NUR ---
Wardrobe Stylist collaborated with Litzy from [facility] to confirm transport time for 1100. SW met with patient to review IM. SW read IM aloud to patient who verbalized understanding then provided verbal consent as signature. SW placed IM in chart and provided copy to patient. SW contacted patient's Prieto and daughter Edwar to update on discharge. SW faxed negative COVID test, COVID transfer assessment and discharge orders to Litzy at [facility]. No additional needs at this time.
--- NOTE | 2019-10-24 11:42 | NUR ---
Felder remvoed, pericare provided before and after removal. 10ml water removed from balloon. Patient tolerated well. IV removed from Right hamd, tip intact, gauze and coban applied. Patient tolerated well. Patient assisted with getting dressing and personal belongings with patient. Nursing staff transfered patient by wheelchair to [facility] transporter. Report called to [facility]
--- NOTE | 2019-10-24 12:50 | NUR ---
First visit from the kitchen manager. No needs right now.
== END 2019-10-24 11:44 | DRG 871 ==
LOC: COL.ER 20:11 → ICU 22:26 → COL.ER 22:26 → EDBEDREQ 23:44 → MEDICAL 10-19 19:54 → ICU 10-19 19:54 → MEDICAL 10-19 19:54
PROVIDERS: Emergency Medicine; Nurse Practitioner; Nurse Practitioner Family; Physician Assistant; ADMIT Family Medicine
DX: A41.51 Sepsis due to Escherichia coli [E. coli] (principal); J96.20 Acute and chronic respiratory failure, unspecified whether with hypoxia or hypercapnia; I50.23 Acute on chronic systolic (congestive) heart failure; I21.A1 Myocardial infarction type 2; Z68.42 Body mass index [BMI] 45.0-49.9, adult; N39.0 Urinary tract infection, site not specified; E87.1 Hypo-osmolality and hyponatremia; N17.9 Acute kidney failure, unspecified; I13.0 Hypertensive heart and chronic kidney disease with heart failure and stage 1 through stage 4 chronic kidney disease, or unspecified chronic kidney disease; R65.20 Severe sepsis without septic shock; E03.9 Hypothyroidism, unspecified; K21.9 Gastro-esophageal reflux disease without esophagitis; J44.9 Chronic obstructive pulmonary disease, unspecified; G47.33 Obstructive sleep apnea (adult) (pediatric); I48.0 Paroxysmal atrial fibrillation; E87.70 Fluid overload, unspecified; M19.90 Unspecified osteoarthritis, unspecified site; E11.649 Type 2 diabetes mellitus with hypoglycemia without coma; F32.9 Major depressive disorder, single episode, unspecified; E66.01 Morbid (severe) obesity due to excess calories; E87.6 Hypokalemia; N18.3 Chronic kidney disease, stage 3 (moderate); Z95.1 Presence of aortocoronary bypass graft
CPT/HCPCS: 99223-AI; 99232-AI; 99233-AI; 99239; J0696; J1644; J1815; J1940; J7030